=== PATIENT | male | born 1965 | race Caucasian/White ===

== ENCOUNTER 2017-05-01 09:38 | Emergency (ER) | payer OTHER ==
[~2017-05-01] VITALS: Ht 180.3 cm; Wt 107.4 kg
[2017-05-01 09:45] VITALS: BP 143/98
[2017-05-01] MEDS ORDERED: KETOROLAC 30 MG/1 ML ONE (10:19)
[2017-05-01] MEDS ORDERED: METHOCARBAMOL 750 MG TABLET ONE (10:19)
[2017-05-01] MEDS ORDERED: METHOCARBAMOL 750 MG TABLET PO ONE (10:30)
[2017-05-01] MEDS ORDERED: KETOROLAC 30 MG/1 ML IM ONE (10:30)
== END 2017-05-01 11:37 | disposition home or self-care (01) ==
LOC: ED 10:09
DX: S16.1XXA Strain of muscle, fascia and tendon at neck level, initial encounter (principal); V43.52XA Car driver injured in collision with other type car in traffic accident, initial encounter; Y93.89 Activity, other specified; Y99.8 Other external cause status; Y92.488 Other paved roadways as the place of occurrence of the external cause
CPT/HCPCS: 72050; 96372; 99284; J1885